=== PATIENT | male | born 1985 | race Caucasian/White ===

== ENCOUNTER 2021-10-13 19:50 | Emergency (ER) | payer SELFPAY ==
[~2021-10-13] VITALS: Ht 170.2 cm; Wt 68.0 kg
[2021-10-13] MEDS ORDERED: ONDANSETRON HCL 4MG/2ML INJ IV STA (23:27)
[2021-10-13] MEDS ORDERED: KETOROLAC 30MG/ML VIAL IV STA (23:27)
[2021-10-13] MEDS ORDERED: SODIUM CHLORIDE 0.9% 1,000 ML IV ONE (23:30)
[2021-10-13 23:59] LABS: BASOPHILS % 0.4 % (0.0-2.0); EOSINOPHILS % 3.9 % (0.0-5.0); HEMOGLOBIN. 15.2 g/dL (14.0-18.0); LYMPHOCYTES % 39.5 % (20.0-50.0); MONOCYTES % 7.5 % (2.0-8.0); NEUTROPHILS % 48.7 % (40.0-76.0); PLATELET 236 x1000/uL (130-400); RED BLOOD CELL COUNT 5.05 mill/uL (4.7-6.1); RED CELL DISTRIBUTION WIDTH 12.4 % (11.6-14.6)
[2021-10-14 00:03] LABS: CHLORIDE 104 mEq/L (98-107)
[2021-10-14 00:07] LABS: PROTHROMBIN TIME 10.9 sec (9.6-11.0)
[2021-10-14 03:38] LABS: CLARITY URINE CLEAR (CLEAR); COLOR URINE DARK YELLOW (YELLOW); KETONES URINE 1+ (NEGATIVE); LEUKOCYTE ESTERASE URINE NEGATIVE (NEGATIVE); NITRITE URINE NEGATIVE (NEGATIVE); OCCULT BLOOD URINE NEGATIVE (NEGATIVE); PH URINE 5.5 (4.5-8.0); PROTEIN URINE NEGATIVE (NEGATIVE); SPECIFIC GRAVITY URINE 1.026 (1.005-1.030)
[2021-10-14] MEDS ORDERED: HYDR26CR2 TP (03:52)
[2021-10-14 04:08] VITALS: BP 107/58
== END 2021-10-14 04:28 | disposition home or self-care (01) ==
LOC: ER 19:50
DX: R10.30 Lower abdominal pain, unspecified (principal); R11.2 Nausea with vomiting, unspecified; R19.7 Diarrhea, unspecified; K64.8 Other hemorrhoids
CPT/HCPCS: 36415; 71045; 74176; 80053; 81003; 85025; 85610; 86850; 86900; 86901; 93005; 96360; 99285; J7030; J1885; J2405